=== PATIENT | female | born 1965 | race Caucasian/White ===

== ENCOUNTER → 2019-05-23 | Day surgery (SDC) | payer OTHER ==
[2019-05-20 12:33] LABS: BASOPHILS % 0.4 % (0.0-1.0); EOSINOPHILS # (AUTO) 0.2 (0.0-0.4); EOSINOPHILS % 2.3 % (0.0-6.0); HEMATOCRIT 36.5 % (34.2-44.1); HEMOGLOBIN 12.3 g/dL (12.0-16.0); LYMPHOCYTES # (AUTO) 2.4 (1.0-3.2); LYMPHOCYTES % 29.6 % (18.0-39.1); MEAN CORPUSCULAR HEMOGLOBIN 32.5 pg (28-32); MEAN CORPUSCULAR HGB CONC 33.7 g/dL (31-35); MEAN CORPUSCULAR VOLUME 96.6 fL (81-99); MONOCYTES # (AUTO) 0.8 (0.2-0.8); MONOCYTES % 9.9 % (4.4-11.3); NEUTROPHILS # (AUTO) 4.7 (2.1-6.9); NEUTROPHILS % 57.3 % (38.7-80.0); PLATELET COUNT 216 x10e3/uL (140-360); RED BLOOD COUNT 3.78 x10e6/uL (3.6-5.1)
[2019-05-20 12:54] LABS: INR 0.8; PROTHROMBIN TIME 11.5 seconds (11.9-14.5)
[2019-05-20 13:29] LABS: ALANINE AMINOTRANSFERASE 55 IU/L (0-55); ALBUMIN 4.2 g/dL (3.5-5.0); ALBUMIN/GLOBULIN RATIO 1.4 (0.8-2.0); ALKALINE PHOSPHATASE 90 IU/L (40-150); ANION GAP 13.2 mmol/L (8-16); BLOOD UREA NITROGEN 15 mg/dL (7-26); BUN/CREATININE RATIO 19 (6-25); CALCIUM 10.3 mg/dL (8.4-10.2); CARBON DIOXIDE 24 mmol/L (22-29); CHLORIDE 106 mmol/L (98-107); CREATININE, SERUM 0.79 mg/dL (0.57-1.11); EST GLOMERULAR FILTRATION RATE > 60 ML/MIN (60-); GLUCOSE 100 mg/dL (74-118); POTASSIUM 4.2 mmol/L (3.5-5.1); SODIUM 139 mmol/L (136-145)
[2019-05-20 15:35] LABS: CHOL/HDL RATIO 3.3 (3.0-3.6); CHOLESTEROL 187 MD/DL (0-199); HDL CHOLESTEROL 57 MG/DL (40-60); LDL CHOLESTEROL 66 MG/DL (60-130); TRIGLYCERIDES 318 MG/DL (0-149)
[2019-05-23] VITALS (12 sets, daily range): BP systolic 107–143; BP diastolic 56–106
[~2019-05-23] VITALS: Ht 157.5 cm; Wt 78.9 kg
[~2019-05-23] MED LIST: ACETAMINOPHEN PO; ASPIR-LOW81 MG PO; ASPIRIN 325 MG TAB ONE; ATENOLOL50 MG PO; BIVALRIUDIN 250 MG/VIAL VIAL IV ONE; CALCIUM 600 +1 EAC8; CLOPIDOGREL75 MG PO; DEPO; DEPO INJ; DEXILANT60 MG PO; FENTANYL CITRATE/PF 100MCG/2 ML INJ ONE; FIBER; FLEXERIL PO; HEPARIN SOD (PORCINE) 1000 UNIT/ML 30ML ONE; HEPARIN SOD/SOD CHLORIDE 2,000 ML ONE; IBUPROFEN400 MG PO; IOPAMIDOL 370 MG/ML 200 ML INFUS..BTL INJ ONE; LIDOCAINE HCL 2% LOCAL 20 ML VIAL ONE; MIDAZOLAM HCL 2 MG/2 ML VIAL ONE; NAPROXEN PO; NITROGLYCERIN/D5W 200 MCG/ML 250 ML ONE; ORPHENADRINE C100 MG PO; PRISTIQ ER50 MG PO; QUETIAPINE FUMA25 MG PO; RANEXA500 MG PO; SIMVASTATIN40 MG PO; SODIUM CHLORIDE 0.9% 1000ML 1,000 ML ONE; SODIUM CHLORIDE 0.9% 50ML 50 ML ONE; SOMA350 MG PO; TICAGRELOR 90 MG TABLET ONE; TRAMADOL PO; TRAZODONE HCL50 MG PO; VENLAFAXINE H37.5 M2 PO; VERAPAMIL HCL 2.5 MG/ML 2 ML VIAL ONE; ZANTAC150 MG PO; vascepa PO
--- NOTE | 2019-05-23 13:58 | Operative Report ---
DATE OF PROCEDURE: 05/23/2019 SURGEON: Tulio Cardozo MD REPORT TITLE: Cardiac Bottle Filler Procedure Note INDICATIONS: Coronary artery disease, unstable angina. PROCEDURES PERFORMED: 1. Left heart catheterization, selective coronary angiography. 2. Stent placement to the proximal circumflex artery. 3. Deployment of right wrist TR band. COMPLICATIONS: None. RECOMMENDATIONS: 1. Dual-antiplatelet therapy and aggressive medical therapy. 2. Staged intervention of the left anterior descending artery. DESCRIPTION OF PROCEDURE: Access obtained in the right radial artery. A 5-Salvadorean sheath was placed. Diagnostic coronary angiogram revealed patent left main. Right coronary artery has mild, there is 10% to 20% luminal stenosis. Circumflex, proximal 70%. Left anterior descending artery at the site of a diagonal artery at 70% stenosis. LV end-diastolic pressure of 10, no gradient across the aortic valve on pullback. A decision was made to intervene on the circumflex artery. The patient received intravenous Angiomax, oral Brilinta, and aspirin for anticoagulation. The left main was cannulated using a 5-Salvadorean IR 3.5 guiding catheter. A short wire was advanced across the lesion. Primary stent 2.75 x 8 mm Resolute Chad deployed at 16 atmospheres. Excellent end result, less than 10% residual stenosis, CRISTINO-3 flow. No complications. Right guide and sheath were removed. TR band applied. The patient discharged home same day. Tulio Cardozo MD KSB/MODL /[id number]
== END | disposition home or self-care (01) ==
LOC: CATH LAB 05:55
PROVIDERS: ATTEND Internal Medicine Interventional Cardiology
DX: I25.110 Atherosclerotic heart disease of native coronary artery with unstable angina pectoris (principal); E78.5 Hyperlipidemia, unspecified; I47.1 Supraventricular tachycardia; M19.90 Unspecified osteoarthritis, unspecified site; Z79.82 Long term (current) use of aspirin
CPT/HCPCS: 36415; 80053; 80061; 81025; 85025; 85610; 92928; 93458; C1769; C1874; C1887; J0583; J1644; J2001; J2250; J7030; Q9967; J3010

== ENCOUNTER → 2019-05-31 | Day surgery (SDC) | payer OTHER ==
[2019-05-30 15:01] LABS: BASOPHILS % 0.6 % (0.0-1.0); EOSINOPHILS # (AUTO) 0.3 (0.0-0.4); EOSINOPHILS % 3.8 % (0.0-6.0); HEMATOCRIT 39.3 % (34.2-44.1); HEMOGLOBIN 12.8 g/dL (12.0-16.0); LYMPHOCYTES # (AUTO) 2.2 (1.0-3.2); LYMPHOCYTES % 33.4 % (18.0-39.1); MEAN CORPUSCULAR HGB CONC 32.6 g/dL (31-35); MEAN CORPUSCULAR VOLUME 98.3 fL (81-99); MONOCYTES # (AUTO) 0.7 (0.2-0.8); MONOCYTES % 11.4 % (4.4-11.3); NEUTROPHILS # (AUTO) 3.3 (2.1-6.9); NEUTROPHILS % 50.2 % (38.7-80.0); PLATELET COUNT 226 x10e3/uL (140-360); RED CELL DISTRIBUTION WIDTH 13.6 % (11.7-14.4)
[2019-05-30 15:25] LABS: ALANINE AMINOTRANSFERASE 86 IU/L (0-55); ALBUMIN 4.4 g/dL (3.5-5.0); ALBUMIN/GLOBULIN RATIO 1.4 (0.8-2.0); ALKALINE PHOSPHATASE 102 IU/L (40-150); BLOOD UREA NITROGEN 16 mg/dL (7-26); BUN/CREATININE RATIO 19 (6-25); CALCIUM 10.5 mg/dL (8.4-10.2); CARBON DIOXIDE 25 mmol/L (22-29); CHLORIDE 102 mmol/L (98-107); CREATININE, SERUM 0.83 mg/dL (0.57-1.11); EST GLOMERULAR FILTRATION RATE > 60 ML/MIN (60-); GLUCOSE 113 mg/dL (74-118); SODIUM 138 mmol/L (136-145)
[~2019-05-31] VITALS: Ht 157.5 cm; Wt 78.9 kg
[2019-05-31] VITALS (12 sets, daily range): BP systolic 107–144; BP diastolic 60–99
[~2019-05-31] MED LIST changes: -ASPIRIN 325 MG TAB ONE; -VERAPAMIL HCL 2.5 MG/ML 2 ML VIAL ONE
--- NOTE | 2019-05-31 12:36 | NUR ---
Documentation error note- Time entered for first post-op time is incorrect due to monitor time being incorrect. Correct PACU start time is 1200.
--- NOTE | 2019-05-31 13:21 | Operative Report ---
DATE OF PROCEDURE: 05/31/2019 SURGEON: Tulio Cardozo MD INDICATION: Coronary artery disease, unstable angina, staged intervention on the left anterior descending artery. PROCEDURES PERFORMED: 1. Left heart catheterization, selective coronary angiography. 2. PTCA and stent placement in the mid left anterior descending artery. 3. Deployment of right wrist TR band. COMPLICATIONS: None. RECOMMENDATIONS: Dual antiplatelet therapy for at least 6 months. DESCRIPTION OF PROCEDURE: Access obtained in the right radial artery. A 5-Swedish sheath was placed. The patient received intravenous Angiomax for anticoagulation as well as oral Brilinta and aspirin. The left main was cannulated using JES 5-Swedish guiding catheter. 80% stenosis of the mid left anterior descending artery. A short ChoICE wire was advanced across the lesion. Primary stent 2.5 x 8 mm Synergy stent was deployed at 18 atmospheres. Excellent end result, less than 10% residual stenosis, CRISTINO-3 flow, no complications. Wire and guide sheath removed. TR band applied . The patient discharged home same day. MD SUNITA Zafar/MODL /[id number]
--- NOTE | 2019-05-31 14:30 | NUR ---
1430pm Bedside report received from POLLY Trinidad. Identiferx2. Alert oriented and appropriate, PERRLA, respirations even and unlabored to room air. Pulses x4 extremities equal and strong. Pedal pulses PT/DP palpabnle bilateral. and mCap fill brisk < 3 sec. at bedside Aly diacharge planning provide with adequate understanding and has copies. Skin warm and dry integrity appears D/I. IV 20g to left hand presents healthy w/o s/s of infiltration or complaint. Abdomen soft and supple. pt offered toileting, denies need to urinate or defecate. No personal affects with patient. Currently w/o complaint of pain or need.TR band air remooval to start at 3pm .No gross issues pain pallor pressure no dysrhythmia. Normal neuro vascular function. 1500pm -2cc No oozinig or hematoma Normal neuro vascular function 1515 pm -2cc stable site 1530 -2cc TR band off sterile 2x2 and tegederm and Coban dressing with splint Normal neuro vascular function. ![id number] dressed and ready for dc has papers escorted to car Aware of importance f/o care. To car per w/c stable vs and ekg NO gross issues pain pallor pressure or dysthrthmia. Splint in place ds/rn
--- NOTE | 2019-05-31 15:30 | NUR ---
1530pm TR band removal completed. Sterile 2x2 and Tegaderm and Coban dressing in place Normal neuro vascular function, DC paper completed. No gross issues pain, pallor, pressure or dysrhythmia.Dressed and assisted to car per w/c with RN escort. N0 c/o Cp or SOB Aware of importance of f/o care. ds/rn
== END | disposition home or self-care (01) ==
LOC: CATH LAB 10:18
PROVIDERS: ATTEND Internal Medicine Interventional Cardiology
DX: I25.110 Atherosclerotic heart disease of native coronary artery with unstable angina pectoris (principal); E78.00 Pure hypercholesterolemia, unspecified; E78.5 Hyperlipidemia, unspecified; R00.0 Tachycardia, unspecified; Z88.6 Allergy status to analgesic agent; Z01.812 Encounter for preprocedural laboratory examination; Z79.02 Long term (current) use of antithrombotics/antiplatelets; Z79.82 Long term (current) use of aspirin; Z68.31 Body mass index [BMI] 31.0-31.9, adult; Z98.1 Arthrodesis status; Z82.49 Family history of ischemic heart disease and other diseases of the circulatory system
CPT/HCPCS: 36415; 80053; 85025; 92928; C1874; J0583; J1644; J2001; J2250; J7030; Q9967; J3010